=== PATIENT | male | born 1955 | race Caucasian/White ===

== ENCOUNTER 2016-07-31 13:07 | Emergency (ER) | payer OTHER ==
[~2016-07-31] VITALS: Ht 175.3 cm; Wt 81.7 kg
--- NOTE | ~2016-07-31 | EKG ---
[place] [address] [facility] [place] [address] ELECTROCARDIOGRAM REPORT Name: MARGELIAM Victoriano Room #: DEP JARON Donovan#: [id number] Admission: 07/31/16 Attend Phys: Discharge: 07/31/16 Date of : 53 Report #: [id number] THIS REPORT FOR: //name// [facility] ED Test Date: 2016-07-31 Test Time: 13:58:37 Pat Name: LIAM BIRD Department: Room: Gender: M Prn Occupational Therapist: 11 : 1955 Requested By: Tahir Anaya Order Number: [id number] MD: Giovanni Lundberg Measurements Intervals Hilbert Rate: 64 P: -26 AR: 176 QRS: -33 QRSD: 92 T: -27 QT: 425 QTc: 439 Interpretive Statements Sinus rhythm Left ventricular hypertrophy Inferior infarct, old Anterior Q waves, possibly due to LVH Abnrm T, consider ischemia, anterolateral lds Baseline wander in lead(s) V1 No previous ECG available for comparison Electronically Signed On 07-31-2016 16:51:30 NEWSWRITER by Giovanni Lundberg [email or web address] <ELECTRONICALLY SIGNED> By: Giovanni Lundberg MD 07/31/16 1651 [id number] Giovanni Lundberg MD /EPI
[2016-07-31 14:03] LABS: ABSOLUTE NEUTROPHILS 6.3 thou/uL (1.4-8.2); BASOPHILS 0.5 % (0.0-2.0); EOSINOPHILS 2.5 % (0.0-3.0); HEMOGLOBIN 15.2 gm/dL (14.0-18.0); LYMPHOCYTES 22.6 % (24.0-44.0); MCH 30.1 pg (26.0-34.0); MCHC 34.6 % (28.0-37.0); PLATELET COUNT 194 thou/uL (150-400); POLYS 66.4 % (36.0-66.0); RBC 5.06 mil/uL (4.50-6.00); RDW 12.4 % (10.5-14.5); WBC 9.5 thou/uL (4.0-11.0)
[2016-07-31 14:05] LABS: MANUAL DIFF NO; URINE BILIRUBIN NEGATIVE (Negative); URINE BLOOD NEGATIVE (Negative); URINE COLOR YELLOW; URINE GLUCOSE-RANDOM* NEGATIVE (Negative); URINE KETONES NEGATIVE (Negative); URINE LEUKOCYTES-REFLEX NEGATIVE (Negative); URINE PROTEIN (DIPSTICK) NEGATIVE (Negative); URINE UROBILINOGEN 0.2 E.U./dl (0.2-1.0)
[2016-07-31 14:27] LABS: ALBUMIN 3.8 g/dL (3.4-5.0); CREATININE 0.8 mg/dL (0.6-1.3); POTASSIUM 4.4 mmol/L (3.5-5.1); TOTAL BILIRUBIN 0.4 mg/dL (<0.1-1.0); TOTAL PROTEIN 7.5 g/dL (6.4-8.2)
[2016-07-31] MEDS ORDERED: NORVASC 5 MG TAB5 MG PO (15:00)
[2016-07-31] MEDS ORDERED: LISINOPRIL5 MG PO (15:00)
[2016-07-31 15:34] VITALS: BP 223/97
== END 2016-07-31 15:37 | disposition home or self-care (01) ==
LOC: ER 13:07
PROVIDERS: Emergency Medicine
DX: I10 Essential (primary) hypertension (principal); F10.99 Alcohol use, unspecified with unspecified alcohol-induced disorder